=== PATIENT | female | born 1965 | race Caucasian/White ===

== ENCOUNTER 2018-02-26 20:01 | Emergency (ER) | payer BC, OTHER ==
--- OUTSIDE RECORDS SUMMARY | 2018-02-26 20:04 | XMS REPORT | Clinical Summary ---
:1965 Author Organization [facility] Address [address] [place] [address] Care Team Providers Name Role Phone Chapo Diana MD Primary Care Provider Allergies No Known Allergies Current Medications Prescription Sig. Disp. Refills Start Date End Date Status levothyroxine (SYNTHROID, TK 1 T PO QD IN THE 1 09/26/2017 Active LEVOXYL) 100 mcg tablet MORNING OES multivitamin (THERAGRAN) Take 1 tablet by Active tablet mouth daily. cholecalciferol, vitamin Take 1,000 Units by Active D3, (VITAMIN D3) 1,000 mouth daily. unit tablet ascorbic acid, vitamin C, Take 250 mg by Active (vitamin C) 250 MG tablet mouth daily. b complex vitamins (B Take 1 tablet by Active COMPLEX 1) tablet mouth daily. Active Problems Problem Noted Date Excess skin of abdomen 11/07/2017 Encounters Date Type Specialty Care Team Description 11/07/2017 - Hospital Encounter General Surgery Sayda, Preop testing 11/09/2017 Maciej Plummer MD 11/07/2017 Anesthesia Event General Surgery Los Fong MD 11/07/2017 Procedure Pass General Surgery 11/07/2017 Surgery General Surgery Sayda, LOWER BODY LIFT, Maciej Plummer MD BUTTOCK AUTO AUGMENTATION, INSERTION OF PAIN PUMP, ALL OTHER INDICATED PROCEDURES 10/22/2017 Pre-Admit Testing Pre-Admission Say[facility] Preop testing Appointment Testing Maciej Plummer MD after 02/25/2017 Family History Medical History Relation Name Comments Hypertension Father Melanoma Father Diabetes Mother Hyperlipidemia Mother Hypertension Mother Relation Name Status Comments Father Mother Alive Social History Tobacco Use Types Packs/Day Years Used Date Never Smoker Smokeless Tobacco: Never Used Tobacco Cessation: Counseling Given: No Alcohol Use Drinks/Week oz/Week Comments Yes soc Sex Assigned at Date Recorded Not on file Last Filed Vital Signs Vital Sign Reading Time Taken Blood Pressure 138/68 11/09/2017 8:14 AM CDT Pulse 78 11/09/2017 8:14 AM CDT Temperature 37.1 C (98.7 F) 11/09/2017 8:14 AM CDT Respiratory Rate 18 11/09/2017 8:14 AM CDT Oxygen Saturation 95% 11/09/2017 8:55 AM CDT Inhaled Oxygen Concentration - - Weight 72.2 kg (159 lb 1 oz) 11/07/2017 6:53 AM CDT Height 165.1 cm (5' 5") 11/07/2017 6:53 AM CDT Body Mass Index 26.47 11/07/2017 6:53 AM CDT Plan of Treatment Health Maintenance Due Date Last Done Comments CERVICAL CANCER SCREENING 1987 BREAST CANCER SCREENING 2016 COLON CANCER SCREENING 2016 SHINGRIX VACCINE (#1) 2016 INFLUENZA VACCINE 01/02/2018 Implants Implanted Type Area Distribution Manager Device Expiration Model / Identifier Date Serial / Lot Implant Brst Memorygel [facility] [place] [facility] 150cc - [id number] - [id number] Plastic or Left: MENTOR 06/19/2022 350 [id number] / Implanted: Qty: 1 on 11/07/2017 by Maciej Alfredo MD [employer] [id number] / Implants or [id number] Tissue Expanders or Sets Implant Brst Memorygel [facility] 150[facility] - [id number] - [id number] Plastic or Right: MENTOR 08/02/2022 [id number] / Implanted: Qty: 1 on 11/07/2017 by Maciej lAfredo MD [employer] [id number] / Implants or [id number] Tissue Expanders or Sets Procedures Procedure Name Priority Date/Time Associated Diagnosis Comments ID AN ELECTIVE Routine 11/07/2017 8:17 AM ENDOTRACHEAL AIRWAY CDT Procedure Note - Hali Yousif - 11/07/2017 8:17 AM CDT Airway Date/Time: 11/07/2017 7:42 AM Performed by: HALI YOUSIF Authorized by: LOS FONG Location: OR Urgency: Elective Difficult Airway: No Anesthesiologist: LOS FONG Resident/EVICTION SPECIALIST/AA: HALI YOUSIF Performed by: resident/EVICTION SPECIALIST/AA Preoxygenated with 100% O2: Yes Mask Ventilation: Easy mask Final Airway Type: Endotracheal airway Final Endotracheal Airway: ETT Technique Used: Direct laryngoscopy Devices/Methods Used in Placement: Intubating stylet Insertion Site: Oral Blade Type: Gerri Laryngoscope Blade/Videolaryngoscope Blade Size: 3 ETT Size (mm): 7.0 Measured from: Lips ETT to Lips (cm): 21 Placement Verified by: CO2 detection, direct visualization and equal breath sounds Laryngoscopic view: Grade IIa - partial view of glottis Rapid Sequence Induction (RSI): No Modified RSI: No Number of Attempts at Approach: 1 LIPOSUCTION 11/07/2017 7:30 AM CDT COSMETIC, EXCESS SKIN AND MUSCL LAXITY OF ABDOMEN, PUBIC, OUTER THIGHS, AND BUTTOCKS, BILATERAL BREAST PTOSIS AND MICROMASTIA, LACK OF FULLNESS OF BUTTOCKS Special Needs PRONE MASTOPEXY 11/07/2017 7:30 AM CDT COSMETIC, EXCESS SKIN AND MUSCL LAXITY OF ABDOMEN, PUBIC, OUTER THIGHS, AND BUTTOCKS, BILATERAL BREAST PTOSIS AND MICROMASTIA, LACK OF FULLNESS OF BUTTOCKS Special Needs PRONE EXCISION, EXCESSIVE SKIN, 11/07/2017 7:30 AM CDT COSMETIC, EXCESS SKIN AND SUBCUTANEOUS TISSUE, AND FAT, MUSCL LAXITY OF ABDOMEN, CIRCUMFERENTIAL PORTION OF PUBIC, OUTER THIGHS, AND BODY BUTTOCKS, BILATERAL BREAST PTOSIS AND MICROMASTIA, LACK OF FULLNESS OF BUTTOCKS Special Needs PRONE ECG 12-LEAD Routine 10/22/2017 1:24 PM CDT Preop testing after 02/25/2017 Results ECG 12 lead (10/22/2017 1:24 PM) Ventricular rate 64 [facility] Atrial rate 64 [facility] ID interval 160 [facility] QRSD interval 92 [facility] QT interval 386 [facility] QTC interval 398 [facility] P axis 1 44 [facility] QRS axis 1 13 [facility] T wave axis 42 [facility] EKG impression Normal sinus rhythm-Normal [facility] ECG-- Performing Organization Address City/State/Zipcode Phone Number [facility] [address] [place] [address] after 02/25/2017
--- NOTE | 2018-02-26 21:03 | RAD REPORT ---
EXAM DESCRIPTION: US - Extremity Venous Uni Ltd - 02/26/2018 8:55 pm CLINICAL HISTORY: Leg pain and swelling, patient details nonspecified procedure done to the greater saphenous vein COMPARISON: None. TECHNIQUE: Real-time sonographic evaluation of the left lower extremity deep venous system was perfo rmed. FINDINGS: Normal compressibility, flow augmentation, phasic flow and spontaneous flow are identified in the left lower extremity common femoral, superficial femoral, popliteal and posterior tibial vein s. No intraluminal filling defects seen within the deep venous system. In the left greater saphenous vein inferior to the knee there is noncompression. Patient may have und ergone an the ablation procedure or other iatrogenic etiology for this thrombosed superficial vein. IMPRESSION: No deep venous thrombosis identified. Greater saphenous vein below the knee is thrombosed. This is believed to be a iatrogenic based on pat ient history of nonspecified greater saphenous vein procedure.
--- NOTE | 2018-02-26 21:26 | EDPHYS ---
Physician Documentation [facility] Name: Lizz Madrigal Age: 52 yrs Sex: Female : 1965 Arrival Date: 02/26/2018 Time: 20:05 Bed 30 Private MD: ED Physician Alec Marley HPI: 02/26 21:20 The patient presents with pain, that is acute. Onset: The symptoms/episode ma2 began/occurred gradually, 2 day(s) ago. Associated signs and symptoms: Pertinent positives: calf tenderness, swelling, warmth, Pertinent negatives nausea, numbness, tingling. Severity of symptoms: At their worst the symptoms were mild, in the emergency department the symptoms are unchanged. Has left calf pain erythema and edema. . 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 - Social history:: Smoking status: unknown Patient/guardian denies using alcohol, street drugs, The patient lives with family, . - Ebola Screening: : No symptoms or risks identified at this time. - Family history:: not pertinent. ROS: 21:20 Skin: Positive for erythema, Negative for diaphoresis, lesions, puncture, ulceration. ma2 21:20 All other systems are negative. Exam: 21:20 Constitutional: This is a well developed, well nourished patient who is awake, alert, ma2 and in no acute distress. Chest/axilla: Normal chest wall appearance and motion. Nontender with no deformity. No lesions are appreciated. Cardiovascular: Regular rate and rhythm with a normal S1 and S2. No gallops, murmurs, or rubs. Normal PMI, no JVD. No pulse deficits. Respiratory: Lungs have equal breath sounds bilaterally, clear to auscultation and percussion. No rales, rhonchi or wheezes noted. No increased work of breathing, no retractions or nasal flaring. Abdomen/GI: Soft, non-tender, with normal bowel sounds. No distension or tympany. No guarding or rebound. No evidence of tenderness throughout. Neuro: Awake and alert, GCS 15, oriented to person, place, time, and situation. Cranial nerves II-XII grossly intact. Motor strength 5/5 in all extremities. Sensory grossly intact. Cerebellar exam normal. Normal gait. 21:20 Musculoskeletal/extremity: Calves: are non-tender, 5x5 cm erythema, tender patch, with warmth no fluctuance . Vital Signs: 20:11 BP 170 / 100; Pulse 82; Resp 16; Temp 97.6; Pulse Ox 100% on R/A; Weight 68.04 kg; la1 Height 5 ft. 5 in. (165.10 cm); Pain 2/10; 21:22 BP 132 / 88; Pulse 70; Resp 16; Pulse Ox 98% on R/A; aa1 20:11 Body Mass Index 24.96 (68.04 kg, 165.10 cm) la1 MDM: 20:15 Patient medically screened. ma2 21:20 Differential diagnosis: contusion, abrasion, tendonitis, DVT cellulitis unlikley ma2 abscess. 21:24 Data reviewed: vital signs, nurses notes, radiologic studies. Counseling: I had a ma2 detailed discussion with the patient and/or guardian regarding: the historical points, exam findings, and any diagnostic results supporting the discharge/admit diagnosis, the presence of at least one elevated blood pressure reading (>120/80) during this emergency department visit, the need for outpatient follow up. 02/26 20:23 Order name: US Extremity Venous Unilateral Ltd; Complete Time: 21:24 ma2 Administered Medications: No medications were administered Disposition: 02/26/18 21:25 Discharged to Home. Impression: Cellulitis and acute lymphangitis, Cellulitis and acute lymphangitis of other parts of limb. - Condition is Stable. - Discharge Instructions: Cellulitis, Adult. - Prescriptions for Clindamycin HCl 300 mg Oral Capsule - take 1 capsule by ORAL route every 6 hours for 10 days; 40 capsule. Tylenol- Codeine #3 300-30 mg Oral Tablet - take 2 tablet by ORAL route every 6 hours As needed; 30 tablet. - Medication Reconciliation Form, Thank You Letter, Antibiotic Education, Prescription Opioid Use form. - Follow up: Private Physician; When: Tomorrow; Reason: Continuance of care. - Problem is new. - Symptoms are unchanged. - Notes: see your pcp in 5 days for a repeated ultrasound study to rule out deep dennis clots Signatures: Dispatcher [employer] EDMS Michell Jensen RN RN aa1 Joaquin Chan RN RN la1 Alec Marley MD MD ma2 Corrections: (The following items were deleted from the chart) 21:39 21:25 02/26/2018 21:25 Discharged to Home. Impression: Cellulitis and acute aa1 lymphangitis; Cellulitis and acute lymphangitis of other parts of limb. Condition is Stable. Forms are Medication Reconciliation Form, Thank You Letter, Antibiotic Education, Prescription Opioid Use. Follow up: Private Physician; When: Tomorrow; Reason: Continuance of care. Problem is new. Symptoms are unchanged. ma2
--- NOTE | 2018-02-26 21:26 | ER ---
Nurse's Notes [facility] Name: Lizz Madrigal Age: 52 yrs Sex: Female : 1965 Arrival Date: 02/26/2018 Time: 20:05 Bed 30 Private MD: Diagnosis: Cellulitis and acute lymphangitis;Cellulitis and acute lymphangitis of other parts of limb Presentation: 02/26 20:09 Presenting complaint: Patient states: I had surgery 3 months ago and now I am having la1 some redness and tenderness on the medial aspect of my left knee. Transition of care: patient was not received from another setting of care. Onset of symptoms was February 26, 2018. Risk Assessment: Do you want to hurt yourself or someone else? Patient reports no desire to harm self or others. Initial Sepsis Screen: Does the patient meet any 2 criteria? No. Patient's initial sepsis screen is negative. Does the patient have a suspected source of infection? No. Patient's initial sepsis screen is negative. Care prior to arrival: None. 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 - Social history:: Smoking status: unknown Patient/guardian denies using alcohol, street drugs, The patient lives with family, . - Ebola Screening: : No symptoms or risks identified at this time. - Family history:: not pertinent. Screenin:15 Abuse screen: Denies threats or abuse. Denies injuries from another. Nutritional aa1 screening: No deficits noted. Tuberculosis screening: No symptoms or risk factors identified. Fall Risk None identified. Assessment: 20:15 General: Appears in no apparent distress. comfortable, Behavior is calm, cooperative, aa1 appropriate for age. Pain: Complains of pain in medial aspect of left calf Quality of pain is described as aching, Pain began last night. Neuro: Level of Consciousness is awake, alert, obeys commands, Oriented to person, place, time, situation, Moves all extremities. Full function Gait is steady. Cardiovascular: Pulses are 3+ in right dorsalis pedis artery and left dorsalis pedis artery. Respiratory: Airway is patent Respiratory effort is even, unlabored, Respiratory pattern is regular, symmetrical. GI: No signs and/or symptoms were reported involving the gastrointestinal system. : No signs and/or symptoms were reported regarding the genitourinary system. EENT: No signs and/or symptoms were reported regarding the EENT system. Derm: Skin is intact, is healthy with good turgor, Skin is pink, warm \T\ dry. small area of erythema noted to L medial calf. Musculoskeletal: Circulation, motion, and sensation intact. Capillary refill < 3 seconds, Range of motion: intact in all extremities. 21:22 Reassessment: Patient appears in no apparent distress at this time. Patient and/or aa1 family updated on plan of care and expected duration. Pain level reassessed. Patient is alert, oriented x 3, equal unlabored respirations, skin warm/dry/pink. Awaiting provider reassessment. 21:38 Reassessment: Patient appears in no apparent distress at this time. Patient is alert, aa1 oriented x 3, equal unlabored respirations, skin warm/dry/pink. Discussed d/c \T\ f/u instructions with pt; denies questions or concerns at this time. Vital Signs: 20:11 BP 170 / 100; Pulse 82; Resp 16; Temp 97.6; Pulse Ox 100% on R/A; Weight 68.04 kg; la1 Height 5 ft. 5 in. (165.10 cm); Pain 2/10; 21:22 BP 132 / 88; Pulse 70; Resp 16; Pulse Ox 98% on R/A; aa1 20:11 Body Mass Index 24.96 (68.04 kg, 165.10 cm) la1 ED Course: 20:05 Patient arrived in ED. ds1 20:10 Triage completed. la1 20:11 Arm band placed on left wrist. la1 20:15 Alec Marley MD is Attending Physician. ma2 20:15 Michell Jensen, INEZ is Primary Nurse. aa1 20:15 Patient has correct armband on for positive identification. Placed in gown. Bed in low aa1 position. Call light in reach. Pulse ox on. NIBP on. Warm blanket given. 20:56 US Extremity Venous Unilateral Ltd In Process Unspecified. EDMS 21:38 No provider procedures requiring assistance completed. Patient did not have IV access aa1 during this emergency room visit. Administered Medications: No medications were administered Outcome: : Discharge ordered by . ma2 21:38 Discharged to home ambulatory. aa1 21:38 Condition: good 21:38 Discharge instructions given to patient, Instructed on discharge instructions, follow up and referral plans. medication usage, Demonstrated understanding of instructions, follow-up care, medications, Prescriptions given X 2. 21:39 Patient left the ED. aa1 Signatures: Dispatcher [employer] EDMS Michell Jensen, RN RN aa1 Nasreen Mustafa ds1 Joaquin Chan RN RN la1 Alec Marley MD MD ma2
== END 2018-02-26 21:39 | disposition home or self-care (01) ==
LOC: ER 20:01
DX: L03.116 Cellulitis of left lower limb (principal); I89.1 Lymphangitis
CPT/HCPCS: 93971; 99283